=== PATIENT | male | born 1935 | race Caucasian/White ===

== ENCOUNTER 2019-04-10 10:31 | Inpatient (IN) ==
[2019-04-10] MEDS ORDERED: METOPROLOL TARTRATE 5 MG/5 ML VIAL IV STA ×2 (10:57→10:58)
[2019-04-10 11:20] LABS: Basophils % 0.2 % (0.0-0.8); Hematocrit 45.9 VOL% (42.0-52.0); Hemoglobin 14.9 GM/DL (14.0-18.0); Immature Granulocytes % 0.5 %; Immature Granulocytes Absolute 0.06 #; Lymphocytes # 1.1 10*3/uL (1.4-4.0); Lymphocytes % 9.1 % (21.2-54.2); Mean Corpuscular HGB Conc 32.5 GM/DL (32-36); Mean Corpuscular Volume 98.9 FL (87-102); Mean Platelet Volume 9.5 FL (9.6-12.0); Monocytes % 9.1 % (1.7-12.7); Neutrophils % 81.1 % (38.7-73.9); Platelet Count 113 T/CUMM (130-400); Red Blood Count 4.64 MC/CUMM (3.8-5.5); Red Cell Distribution Width 13.2 % (9.3-17.3); White Blood Count 12.3 T/CUMM (4-12)
[2019-04-10 11:30] LABS: PT Patient Result 11.1 SECS (9.6-12.2); Partial Thromboplastin Time 24.7 SECS (20.8-36.0)
[2019-04-10 11:53] LABS: Alanine Aminotransferase 85 U/L (16-61); Albumin 3.6 G/DL (3.4-5.0); Alkaline Phosphatase 84 U/L (45-117); Aspartate Amino Transferase 61 U/L (0-37); Blood Urea Nitrogen 31 MG/DL (7-18); Calcium 9.5 MG/DL (8.5-10.1); Estimated Glom Filtration Rate 55 ML/MIN; Free T4 (Free Thyroxine) 1.03 NG/DL (0.76-1.46); Glucose 99 MG/DL (74-106); Total Protein 7.6 G/DL (6.4-8.3); Troponin I < 0.015 NG/ML (0.00-0.045)
[2019-04-10] MEDS ORDERED: ENOXAPARIN 100 MG/ML SYRINGE SUBCUT STA (12:20)
[2019-04-10 12:45] LABS: Apearance,Urine CLEAR (Clear); Bilirubin,Urine Negative (Negative); Blood, Urine Negative (Negative); Glucose,Urine (UA) Negative (Negative); Ketones,Urine Negative (Negative); Nitrite,Urine Negative (Negative); Protein,Urine 30 MG/DL; RBC,Urine 4 /HPF (0-4); Squamous Epithelial Cell,Urine Occasional /HPF (0-10); Urine Color Yellow (Yellow); Urine Specific Gravity 1.019 (1.001-1.035); Urine Urobilinogen < 2.0 EU/DL (0.2-1.0); WBC,Urine <1 /HPF (0-6)
[2019-04-10 12:56] LABS: Barbiturates Screen,Urine Negative (Negative); Benzodiazepines Screen,Urine Positive (Negative); Cannabinoid Screen,Urine Negative (Negative); Opiate Screen,Urine Negative (Negative); Phencyclidine Screen,Urine Negative (Negative)
[2019-04-10] MEDS ORDERED: HEPARIN 5,000 UNIT/1 ML VIAL IV ONE (13:40)
[2019-04-10] MEDS ORDERED: DOCUSATE SODIUM 100 MG CAPSULE PO PRN (13:43)
[2019-04-10] MEDS ORDERED: ONDANSETRON 4 MG/2 ML VIAL IV PRN (13:43)
[2019-04-10] MEDS ORDERED: ACETAMINOPHEN 325 MG TABLET PO PRN (13:43)
[2019-04-10] MEDS ORDERED: AMIODARONE INJ 150 MG in DEXTROSE 5% 100 ML IV ONE (13:56)
[2019-04-10] MEDS ORDERED: SODIUM CHLORIDE 0.9% 1,000 ML IV SCH (14:00)
[2019-04-10] MEDS ORDERED: HEPARIN DRIP 25,000 UNITS/500 ML PREMIX IV SCH (14:00)
[2019-04-10 14:18] LABS: Risk Ratio 2.39
[2019-04-10] MEDS ORDERED: FUROSEMIDE 20 MG TABLET PO PRN (14:20)
[2019-04-10] MEDS ORDERED: AMIODARONE INJ 450 MG in DEXTROSE 5% 241 ML IV SCH ×2 (15:30→21:40)
[2019-04-10] MEDS: ENOXAPARIN 100 MG/ML SYRINGE SUBCUT SCH (21:42)
[2019-04-10] MEDS: PROPRANOLOL 40 MG TABLET PO SCH (21:42)
[2019-04-11 04:53] LABS: Basophils % 0.1 % (0.0-0.8); Eosinophils % 0.2 % (0.00-10.9); Hematocrit 40.3 VOL% (42.0-52.0); Immature Granulocytes % 0.4 %; Immature Granulocytes Absolute 0.03 #; Lymphocytes # 1.6 10*3/uL (1.4-4.0); Lymphocytes % 20.1 % (21.2-54.2); Mean Corpuscular HGB Conc 32.3 GM/DL (32-36); Mean Corpuscular Volume 99.3 FL (87-102); Mean Platelet Volume 9.6 FL (9.6-12.0); Monocytes % 9.3 % (1.7-12.7); Neutrophils % 69.9 % (38.7-73.9); Platelet Count 102 T/CUMM (130-400); Red Blood Count 4.06 MC/CUMM (3.8-5.5); Red Cell Distribution Width 13.1 % (9.3-17.3); White Blood Count 8.1 T/CUMM (4-12)
[2019-04-11 05:18] LABS: Calcium 8.5 MG/DL (8.5-10.1); Osmolality,Calculated 280.8 MOS/KG (273-304)
[2019-04-11] MEDS: PANTOPRAZOLE 40 MG TABLET PO SCH (08:51)
[2019-04-11] MEDS: ROSUVASTATIN 10 MG TABLET PO SCH (08:51)
[2019-04-11] MEDS: LOSARTAN 50 MG TABLET PO SCH (08:52)
[2019-04-11] MEDS: PROPRANOLOL 40 MG TABLET PO SCH ×2 (08:52→20:38)
[2019-04-11] MEDS ORDERED: INFLUENZA VIRUS VACCINE 0.5 ML SYRINGE IM ONE (08:56)
[2019-04-11] MEDS: ENOXAPARIN 100 MG/ML SYRINGE SUBCUT SCH (09:01)
[2019-04-11] MEDS: AMIODARONE 200 MG TABLET PO SCH ×2 (12:42→20:38)
[2019-04-11] MEDS ORDERED: POLYETHYLENE GLYCOL POWDER 17 GM PACK PO SCH (17:35)
[2019-04-11] MEDS: PSYLLIUM POWDER 3.7 GM/PACK PO SCH (17:54)
[2019-04-11] MEDS: APIXABAN 5 MG TABLET PO SCH (20:38)
[2019-04-12 04:52] LABS: Basophils % 0.5 % (0.0-0.8); Eosinophils # 0.1 10*3/uL (0.0-0.87); Eosinophils % 0.8 % (0.00-10.9); Hematocrit 38.5 VOL% (42.0-52.0); Hemoglobin 12.5 GM/DL (14.0-18.0); Immature Granulocytes % 0.3 %; Immature Granulocytes Absolute 0.02 #; Lymphocytes # 1.8 10*3/uL (1.4-4.0); Mean Corpuscular HGB Conc 32.5 GM/DL (32-36); Mean Platelet Volume 9.6 FL (9.6-12.0); Monocytes % 11.2 % (1.7-12.7); Neutrophils % 58.2 % (38.7-73.9); Platelet Count 109 T/CUMM (130-400); Red Blood Count 3.89 MC/CUMM (3.8-5.5); White Blood Count 6.1 T/CUMM (4-12)
[2019-04-12 05:13] LABS: Calcium 8.5 MG/DL (8.5-10.1); Osmolality,Calculated 285.4 MOS/KG (273-304)
[2019-04-12 08:37] VITALS: BP 151/70
[2019-04-12] MEDS ORDERED: PSYLLIUM POWDER 3.7 GM/PACK PO SCH (09:00)
[2019-04-12] MEDS: APIXABAN 5 MG TABLET PO SCH (09:22)
[2019-04-12] MEDS: PSYLLIUM POWDER 3.7 GM/PACK PO SCH (09:22)
[2019-04-12] MEDS: PROPRANOLOL 40 MG TABLET PO SCH (09:22)
[2019-04-12] MEDS: LOSARTAN 50 MG TABLET PO SCH (09:22)
[2019-04-12] MEDS: ROSUVASTATIN 10 MG TABLET PO SCH (09:23)
[2019-04-12] MEDS: AMIODARONE 200 MG TABLET PO SCH (09:23)
[2019-04-12] MEDS: PANTOPRAZOLE 40 MG TABLET PO SCH (09:23)
[2019-04-12] MEDS ORDERED: ASPIRIN EC 81 MG TABLET PO SCH (11:30)
[2019-04-12] MEDS ORDERED: PROPRANOLOL 20 MG TABLET PO SCH (11:37)
== END 2019-04-12 13:30 | disposition home or self-care (01) | DRG 308 ==
LOC: N.ED 10:31 → SUATTDRO 13:17 → N.EDINP 13:17 → N.TELES 14:00
PROVIDERS: ADMIT Family Medicine; ATTEND Internal Medicine